=== PATIENT | female | born 2000 | race Caucasian/White ===

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

== ENCOUNTER 2022-01-25 11:44 | Outpatient (CLI) | payer MEDICAID | END 2022-01-25 11:45 | disposition EMS.NT | LOC: EMS 11:44 | DX: Z03.89 Encounter for observation for other suspected diseases and conditions ruled out (principal) ==

== ENCOUNTER 2022-02-10 01:15 | Outpatient (CLI) | payer MEDICAID | END 2022-02-10 01:16 | disposition critical access hospital (66) | LOC: EMS 01:15 | DX: R45.851 Suicidal ideations (principal) | CPT/HCPCS: A0425; A0429; A0999 ==

== ENCOUNTER 2022-02-10 01:58 | Emergency (ER) | payer MEDICAID ==
[2022-02-10 02:20] VITALS: BP 130/74
--- NOTE | 2022-02-10 02:22 | ED Physician Documentation ---
PD HPI MHE - Stated complaint Stated Complaint: SI - Chief complaint Chief Complaint: MHE - History obtained from History obtained from: Patient - History of Present Illness Primary symptom: Depression - Additional information Additional information: patient says "I knew I was having a hard time and I recognized that"; she describes feeling depressed lately and tonight she wanted to speak with someone about suicidal thoughts she's been having. She denies plan and denies intent; she says she has been dealing with depression and suicidal thoughts for long rosibel ugh to know when she needs to talk about her feelings. She has a therapist who she was unable to contact at this time. She did not want to call the crisis line because she feels she has had a negative experience with them in the past. Patient called 911 herself; patient tells me that her therapist has instructed her to call 911 if she is having these thoughts and cannot find anyone to speak to about them. Patient says that through 911 she was connected to a crisis line but that police were apparently also contacted (patient believes they were called by 911). Patient tells me she did not want an ambulance and that she does not want to be in the ED. Review of Systems Psychiatric: reports: Depressed, Suicidal (denies plan, denies intent to harm self (admits to thoughts of SI)). 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 HEENT: None Psych: Depression, Anxiety Musculoskeletal: None Derm: None - Past Surgical History Past Surgical History: Yes General: Other - Present Medications Home Medications: Ambulatory Orders Medication Instructions Recorded Confirmed No Known Home Medications 03/01/21 05/06/21 - Allergies Allergies/Adverse Reactions: Allergies Allergy/AdvReac Type Severity Reaction Status Date / Time No Known Drug Allergies Allergy Verified 02/04/22 06:35 - Social History Does the pt smoke?: Yes Smoking Status: Current every day smoker Does the pt drink ETOH?: Yes Does the pt have substance abuse?: Yes - Immunizations Immunizations are current?: No - POLST Patient has POLST: No PD ED PE NORMAL - Vitals Vital signs reviewed: Yes - General General: Alert and oriented X 3, No acute distress, Well developed/nourished - Cardiac Cardiac: RRR, No murmur - Respiratory Respiratory: No respiratory distress, Clear bilaterally - Neuro Neuro: Alert and oriented X 3 - Psych Psych: Normal mood, Normal affect Results - Vitals Vitals: Oxygen O2 Source Room air PD MEDICAL DECISION MAKING - ED course Complexity details: considered differential, d/w patient ED course: Patient is calm and cooperative. I discussed the services we can offer to her in this situation (social work consult in AM, telepsychiatry consult now); patient declines these. She says she can contact her therapist in the morning. She is able to contract for safety with me , will call 911 for transport to ER if she feels unsafe at home Departure - Departure Disposition: Home, Self Care Clinical Impression: Depressive disorder Condition: Good Instructions: ED Depression Comments: As we discussed, you have declined the services we can offer at [facility] ER (telepsychiatric consult, social work consult, transfer to an inpatient mental health facility). You have indicated that you will follow up with your therapist, and agree to return immediately (call 911) if you feel unsafe at any point at home. Discharge Date/Time: 02/10/22 02:37
== END 2022-02-10 02:37 | disposition home or self-care (01) ==
LOC: EDUNIT# → ED 01:58
DX: F32.A Depression, unspecified (principal); F17.200 Nicotine dependence, unspecified, uncomplicated
CPT/HCPCS: 99281; 99283

== ENCOUNTER 2022-02-19 06:52 | Outpatient (CLI) | payer MEDICAID | END 2022-02-19 06:53 | disposition critical access hospital (66) | LOC: EMS 06:52 | DX: T43.591A Poisoning by other antipsychotics and neuroleptics, accidental (unintentional), initial encounter (principal); R10.817 Generalized abdominal tenderness; R10.84 Generalized abdominal pain; R42 Dizziness and giddiness; R11.2 Nausea with vomiting, unspecified | CPT/HCPCS: A0425; A0427; A0999 ==

== ENCOUNTER 2022-02-19 07:33 | Emergency (ER) | payer MEDICAID ==
--- NOTE | 2022-02-19 07:49 | ED Physician Documentation ---
History of Present Illness - Stated complaint Stated Complaint: OD/ETHOH - Chief complaint Chief Complaint: General - History obtained from History obtained from: Patient - History of Present Illness Timing: Prior to arrival - Additonal information Additional information: . 22-year-old female with history of anxiety presents by EMS from home for accidental overdose of her home BuSpar patient states that she takes instant release BuSpar for anxiety breakthroughs. She states that she was heavily intoxicated after going out with her friends last night and accidentally took which she believes is approximately 10 tablets of 7.5 mg BuSpar. She states that several hours later when she was more sober she realized she made a mistake and called 911 because she was feeling queasy. EMS administered 4 mg of IV Zofran with improvement in her nausea. Patient states she currently feels much better and is here for evaluation of her possible overdose. Patient adamantly denies attempt to harm herself, denies history of suicidal ideation or attempts. 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 HEENT: None Psych: Depression, Anxiety Musculoskeletal: None Derm: None - Past Surgical History Past Surgical History: Yes General: Other - Present Medications Home Medications: Ambulatory Orders Medication Instructions Recorded Confirmed Dextroamphetamine/Amphetamine 10 mg PO DAILY 02/19/22 02/19/22 [Dextroamp-Amphetamine 5 mg Tab] busPIRone [Buspar] 7.5 mg PO BID 02/19/22 02/19/22 - Allergies Allergies/Adverse Reactions: Allergies Allergy/AdvReac Type Severity Reaction Status Date / Time No Known Drug Allergies Allergy Verified 02/04/22 06:35 - Social History Does the pt smoke?: Yes Smoking Status: Current every day smoker Does the pt drink ETOH?: Yes Does the pt have substance abuse?: Yes - Immunizations Immunizations are current?: No - POLST Patient has POLST: No Results - Vitals Vitals: Vital Signs - 24 hr 02/19/22 02/19/22 07:43 08:32 Temperature 37 C Heart Rate 63 68 Respiratory 18 17 Rate Blood Pressure 121/90 H 120/79 O2 Saturation 100 100 Oxygen O2 Source Room air - EKG (time done) 0744 Rate: Rate (enter#) Rhythm: Sinus bradycardia [place]: Normal Intervals: Normal [place] QRS: Normal Ischemia: Normal ST segments - Labs Labs: Laboratory Tests 02/19/22 02/19/22 02/19/22 07:52 07:52 07:52 WBC 8.0 RBC 4.46 Hgb 13.2 Hct 40.9 MCV 91.7 MCH 29.6 MCHC 32.3 RDW 13.0 Plt Count 196 MPV 10.9 H Neut # (Auto) 5.7 Lymph # (Auto) 1.5 Young # (Auto) 0.6 Eos # (Auto) 0.1 Baso # (Auto) 0.0 Absolute Nucleated RBC 0.00 Nucleated RBC % 0.0 Sodium 139 Potassium 3.2 L Chloride 105 Carbon Dioxide 25 Anion Gap 9.0 BUN 9 Creatinine 0.5 Estimated GFR (MDRD) 157 Glucose 90 Calcium 9.3 Total Bilirubin 0.6 AST 17 ALT 12 Alkaline Phosphatase 72 Total Protein 7.0 Albumin 4.5 Globulin 2.5 Albumin/Globulin Ratio 1.8 Serum HCG, Qual NEGATIVE PD MEDICAL DECISION MAKING - ED course ED course: Accidental over ingestion patient's prescribed medication. Adamantly denying suicidal ideation, denies any intention of self-harm. Patient states that she took approximately 10 pills over the course of the night because she was intoxicatHemodynamically stable, no acute distress, will check basic labs and EKG, if patient is clinically sober will discharge. Patient counseled on appropriate use of medication and recommended she follow with her primary or psychiatrist if she is needing breakthrough anxiety mediations more than the twice daily recommended by the rx bottle provided. Departure - Departure Disposition: 01 Home, Self Care Clinical Impression: Nausea Accidental overdose Qualifiers: Encounter type: initial encounter Qualified Code(s): T50.901A - Poisoning by unspecified drugs, medicaments and biological substances, accidental (unintentional), initial encounter Condition: Good Instructions: ED Overdose Accidental Discharge Date/Time: 02/19/22 08:37
[2022-02-19 07:58] LABS: BASOPHILS % (AUTO) 0.5 %; EOSINOPHILS # (AUTO) 0.1 10^3/uL (0.0-0.7); EOSINOPHILS % (AUTO) 0.9 %; HCT - HEMATOCRIT 40.9 % (37.0-47.0); HGB - HEMOGLOBIN 13.2 g/dL (12.0-16.0); LYMPHOCYTES # (AUTO) 1.5 10^3/uL (1.5-3.5); LYMPHOCYTES % (AUTO) 18.6 %; MEAN CORPUSCULAR HEMOGLOBIN 29.6 pg (27.0-31.0); MEAN CORPUSCULAR HGB CONC 32.3 g/dL (32.0-36.0); MEAN CORPUSCULAR VOLUME 91.7 fL (81.0-99.0); MEAN PLATELET VOLUME 10.9 fL (7.9-10.8); MONOCYTES # (AUTO) 0.6 10^3/uL (0.0-1.0); NEUTROPHILS # (AUTO) 5.7 10^3/uL (1.5-6.6); NEUTROPHILS % (AUTO) 71.7 %; PLT - PLATELET COUNT 196 10^3/uL (130-450); RED BLOOD COUNT 4.46 10^6/uL (4.20-5.40)
[2022-02-19 08:14] LABS: ALBUMIN 4.5 g/dL (3.2-5.5); ALBUMIN/GLOBULIN RATIO 1.8 (1.0-2.2); BILIRUBIN,TOTAL 0.6 mg/dL (0.2-1.0); CALCIUM 9.3 mg/dL (8.5-10.3); CREATININE 0.5 mg/dL (0.4-1.0); POTASSIUM 3.2 mmol/L (3.5-5.0)
[2022-02-19 08:33] VITALS: BP 120/79
[2022-02-19 08:52] LABS: HCG,QUALITATIVE BLOOD NEGATIVE
--- OUTSIDE RECORDS SUMMARY | 2022-02-22 15:49 | EXTERNAL MEDICAL SUMMARY RPT | Continuity of Care Document ---
:2000 Author Organization [facility] Address [address] [place] [address] Phone Allergies and Intolerances date description facility type (no date) No Known Drug Allergies [facility] ([facility] own) Encounters No information. Functional Status No information. Immunizations No information. Medications No information. Problems No information. Procedures date description facility +0000 [facility] Results/Labs No information. Social History No information. Vital Signs date measurement value units +0000 BP_diastolic BP_diastolic 70 mm[H g] +0000 BP_systolic BP_systolic 111 mm[Hg] [id number]+0000 heart_rate heart_rate 86 /min +0000 respiration_rate respiration_rate 18 /min [id number]+0000 temperature_metric temperature_metric 36.39 C [id number]+0000 temperature_standard temperature_standard 9 7.5 F [id number]+0000 weight_metric weight_metric 58.96 kg [id number]+0000 weight_standard weight_standard 129.98 lb
== END 2022-02-19 08:37 | disposition home or self-care (01) ==
LOC: EDUNIT# → ED 07:33
DX: T50.901A Poisoning by unspecified drugs, medicaments and biological substances, accidental (unintentional), initial encounter (principal); F17.200 Nicotine dependence, unspecified, uncomplicated; N93.8 Other specified abnormal uterine and vaginal bleeding
CPT/HCPCS: 36415; 80053; 84703; 85025; 93005; 99281; 99283

== ENCOUNTER 2022-02-19 21:22 | Emergency (ER) | payer MEDICAID ==
[2022-02-19 21:35] VITALS: BP 101/63
--- NOTE | 2022-02-19 22:08 | ED Physician Documentation ---
PD HPI FEMALE - Stated complaint Stated Complaint: FEMALE - Chief complaint Chief Complaint: Abd Pain - History obtained from History obtained from: Patient - History of Present Illness Timing - onset: Today Timing - duration: Minutes Timing - details: Abrupt onset, Now resolved Associated symptoms: Vaginal bleeding Contributing factors: control (explanon) Similar symptoms before: Diagnosis (DUB) Recently seen: Emergency Dept - Additional information Additional information: 22-year-old Jennifer Soto was seen in the emergency department earlier this morning for an accidental overdose of bupropion. She returns to the ED this evening with excessive vaginal bleeding. She is on explanon and is not due for removal until Sep. 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 HEENT: None Psych: Depression, Anxiety Musculoskeletal: None Derm: None - Past Surgical History Past Surgical History: Yes General: Other - Present Medications Home Medications: Ambulatory Orders Medication Instructions Recorded Confirmed Dextroamphetamine/Amphetamine 10 mg PO DAILY 02/19/22 02/19/22 [Dextroamp-Amphetamine 5 mg Tab] busPIRone [Buspar] 7.5 mg PO BID 02/19/22 02/19/22 - Allergies Allergies/Adverse Reactions: Allergies Allergy/AdvReac Type Severity Reaction Status Date / Time No Known Drug Allergies Allergy Verified 02/19/22 21:35 - Social History Does the pt smoke?: Yes Smoking Status: Current every day smoker Does the pt drink ETOH?: Yes Does the pt have substance abuse?: Yes - Immunizations Immunizations are current?: No - POLST Patient has POLST: No PD ED PE NORMAL - Vitals Vital signs reviewed: Yes (normal) - General General: Alert and oriented X 3, No acute distress, Well developed/nourished - HEENT HEENT: Atraumatic, PERRL, EOMI - Respiratory Respiratory: No respiratory distress - Derm Derm: Normal color, Warm and dry, No rash - Extremities Extremities: No deformity, No edema - Neuro Neuro: Alert and oriented X 3, chief executive or managing director 2-12 intact, No motor deficit, No sensory deficit, Normal speech Eye Opening: Spontaneous Motor: Obeys Commands Verbal: Oriented GCS Score: 15 - Psych Psych: Normal mood, Normal affect Results - Vitals Vitals: Vital Signs - 24 hr 02/19/22 21:33 Temperature 36.6 C Heart Rate 67 Respiratory 16 Rate Blood Pressure 101/63 O2 Saturation 200 H Oxygen O2 Source Room air PD MEDICAL DECISION MAKING - ED course ED course: Serum HcG negative this morning. The patient's blood counts were normal this morning as well. I discussed the nature of dysfunctional uterine bleeding and possible treatments and the patient was reassured and did not feel that recheck of the blood counts would be necessary and I agreed. She will count pads and return if needed otherwise follow up with TRANSPORTATION OPERATIONS MANAGER. Departure - Departure Disposition: 01 Home, Self Care Clinical Impression: DUB (dysfunctional uterine bleeding) Condition: Stable Instructions: ED Bleed Irregular Vaginal Follow-Up: Edwige Segura ARNP [Primary Care Provider] - Comments: Joonra today looks like you are having some dysfunctional uterine bleeding or excessive bleeding vaginally at a time that is not scheduled. This is not an unusual occurrence periodically. The recommendation is that if you are saturating more than 2 pads per hour for more than 4 hours to return to the emergency department for further evaluation. Discharge Date/Time: 02/19/22 22:14
--- OUTSIDE RECORDS SUMMARY | 2022-02-22 15:57 | EXTERNAL MEDICAL SUMMARY RPT | Continuity of Care Document ---
:2000 Author Organization [facility] Address [address] [place] [address] Phone Allergies and Intolerances date description facility type (no date) No Known Drug Allergies [facility] ([facility] own) Encounters No information. Functional Status No information. Immunizations No information. Medications No information. Problems No information. Procedures date description facility +0000 [facility] Results/Labs No information. Social History No information. Vital Signs date measurement value units +0000 BP_diastolic BP_diastolic 70 mm[H g] +0000 BP_systolic BP_systolic 111 mm[Hg] [id number]+0000 heart_rate heart_rate 86 /min +0000 respiration_rate respiration_rate 18 /min [id number]+0000 temperature_metric temperature_metric 36.39 C [id number]+0000 temperature_standard temperature_standard 9 7.5 F [id number]+0000 weight_metric weight_metric 58.96 kg [id number]+0000 weight_standard weight_standard 129.98 lb
== END 2022-02-19 22:14 | disposition home or self-care (01) ==
LOC: ED 21:22
DX: N93.8 Other specified abnormal uterine and vaginal bleeding (principal); F17.200 Nicotine dependence, unspecified, uncomplicated
CPT/HCPCS: 99281; 99283

== ENCOUNTER 2022-03-12 04:48 | Outpatient (CLI) | payer MEDICAID | END 2022-03-12 04:49 | disposition critical access hospital (66) | LOC: EMS 04:48 | DX: R45.89 Other symptoms and signs involving emotional state (principal); R51.9 Headache, unspecified; M54.2 Cervicalgia; M54.9 Dorsalgia, unspecified; R07.9 Chest pain, unspecified; M25.512 Pain in left shoulder; M25.511 Pain in right shoulder; M79.602 Pain in left arm; M79.601 Pain in right arm; M79.605 Pain in left leg; M79.604 Pain in right leg; R45.1 Restlessness and agitation; Z56.89 Other problems related to employment; Z60.8 Other problems related to social environment | CPT/HCPCS: A0425; A0429; A0999 ==